=== PATIENT | male | born 2000 | race African-American/Black ===

== ENCOUNTER 2021-11-15 11:55 | Emergency (ER) | payer SELFPAY ==
[2021-11-15] MEDS ORDERED: Fentanyl 100 MCG/2 ML VIAL ONE (12:44)
[2021-11-15] MEDS ORDERED: Lidocaine 1% (PF) 30 ML VIAL ONE (14:33)
[2021-11-15] MEDS ORDERED: Boostrix 0.5 ML (Tdap) VIAL ONE (14:33)
[2021-11-15] MEDS ORDERED: Lidocaine 1% w/Epinephrine 1:100K 20 ML VIAL ONE (14:48)
== END 2021-11-15 15:37 | disposition home or self-care (01) ==
LOC: CSHERS 11:55
DX: S02.2XXA Fracture of nasal bones, initial encounter for closed fracture (principal); S02.832A Fracture of medial orbital wall, left side, initial encounter for closed fracture; S01.112A Laceration without foreign body of left eyelid and periocular area, initial encounter; Y00.XXXA Assault by blunt object, initial encounter; Z23 Encounter for immunization
CPT/HCPCS: 12014; 70450; 70486; 72125; 90471; 90715; 96374; J2001; J3010

== ENCOUNTER 2022-06-25 20:20 | Emergency (ER) | payer SELFPAY ==
[2022-06-26] MEDS ORDERED: metroNIDAZOLE 500 MG TAB ONE (01:22)
== END 2022-06-25 20:49 | disposition left against medical advice (07) ==
LOC: CSHERS 20:20
DX: Z53.21 Procedure and treatment not carried out due to patient leaving prior to being seen by health care provider (principal)

== ENCOUNTER 2022-06-25 21:18 | Emergency (ER) | payer SELFPAY | END 2022-06-26 01:24 | disposition home or self-care (01) | LOC: CSHERS 21:18 | DX: A59.00 Urogenital trichomoniasis, unspecified (principal) | CPT/HCPCS: 99283 ==

== ENCOUNTER 2023-05-12 14:54 | Emergency (ER) | payer SELFPAY | END 2023-05-12 20:37 | disposition left against medical advice (07) | LOC: CSHERS 14:54 | DX: Z53.21 Procedure and treatment not carried out due to patient leaving prior to being seen by health care provider (principal) ==

== ENCOUNTER 2023-05-13 12:44 | Emergency (ER) | payer SELFPAY ==
[2023-05-13 13:26] LABS: #Eosinphils 0.4 10x3/uL (0.0-0.5); #Monocytes 0.7 10x3/uL (0.0-1.1); #Neutrophils 2.6 10x3/uL (1.5-8.4); %Basophils 0.7 % (0.0-2.0); %Eosinophils 7.3 % (0.0-6.0); %Lymphocytes 32.9 % (18.0-47.0); %Monocytes 12.7 % (0.0-10.0); %Neutrophils 46.2 % (40.0-75.0); Hematocrit 38.7 % (38.8-50.0); Mean Corpuscular HGB CONC 33.6 g/dL (32.0-36.0); Mean Corpuscular Volume 92.1 fl (81.2-95.1); Mean Platelet Volume 8.7 fl (7.4-10.4); Platelet Count 257 10x3/uL (150-450); RBC Distribution Width 11.5 % (11.5-14.5); White Blood Cell (WBC) Count 5.7 10x3/uL (3.5-10.5)
[2023-05-13 13:42] LABS: ALT (SGPT) 13 U/L (8-55); AST (SGOT) 22 U/L (5-34); Albumin 4.1 g/dL (3.5-5.0); Alkaline Phosphatase 55 U/L (40-110); Anion Gap 10 mmol/L (10-20); BUN (Urea Nitrogen) 10 mg/dL (8.9-20.6); Bilirubin, Total 0.5 mg/dL (0.2-1.2); CK (CPK) 115 U/L (30-200); Calc. Creatinine Clearance 0 mL/min (70-130); Calcium 8.7 mg/dL (7.8-10.44); Carbon Dioxide 27 mmol/L (22-29); Chloride 106 mmol/L (98-107); Estimated GFR 124; Glucose 89 mg/dL (70-105); Potassium 4.1 mmol/L (3.5-5.1); Protein, Total 7.1 g/dL (6.0-8.3); Sodium 139 mmol/L (136-145)
== END 2023-05-13 13:50 | disposition home or self-care (01) ==
LOC: CSHERS 12:44
DX: R11.2 Nausea with vomiting, unspecified (principal); F17.210 Nicotine dependence, cigarettes, uncomplicated
CPT/HCPCS: 80053; 82550; 85025; 99284